=== PATIENT | male | born 1985 | race Caucasian/White ===

== ENCOUNTER 2021-07-21 06:04 | Emergency (ER) | payer OTHER ==
[~2021-07-21] VITALS: Ht 167.6 cm; Wt 76.0 kg
[2021-07-21] MEDS ORDERED: IBUPROFEN 800 MG TAB PO ONE (07:20)
--- NOTE | 2021-07-21 07:53 | REPVR ---
PROCEDURE INFORMATION: Exam: XR Left Ankle Exam date and time: 07/21/2021 7:31 AM Age: 35 years old Clinical indication: Pain; Ankle; Left; Additional info: Medial and lateral malleolus tenderness S/P injury TECHNIQUE: Imaging protocol: XR Left ankle. Views: 3 or more views. COMPARISON: No relevant prior studies available. FINDINGS: Bones/joints: No acute fracture or dislocation is identified. The ankle mortise is preserved on these nonstressed views. Very mild osteophyte formation is present about the tibiotalar joint. There is a small posterior calcaneal enthesophyte. Soft tissues: There is mild soft tissue swelling laterally. IMPRESSION: 1. Mild lateral soft tissue swelling without acute fracture or dislocation identified. May consider follow-up in 7 to 10 days or correlation with MRI if symptoms persist. 2. Mild degenerative changes as described. Electronically signed by: Wesley Kwok On 07/21/2021 07:53:35 AM
[2021-07-21] MEDS ORDERED: IBUP80TA PO (08:24)
[2021-07-21 08:39] VITALS: BP 128/84
== END 2021-07-21 08:55 | disposition home or self-care (01) ==
LOC: M ED 06:04
DX: S93.402A Sprain of unspecified ligament of left ankle, initial encounter (principal); M19.072 Primary osteoarthritis, left ankle and foot; Y92.009 Unspecified place in unspecified non-institutional (private) residence as the place of occurrence of the external cause; Y93.01 Activity, walking, marching and hiking; Y99.9 Unspecified external cause status